=== PATIENT | male | born 1995 | race Two or more races ===

== ENCOUNTER 2021-10-09 05:18 | Emergency (ER) | payer OTHER ==
[~2021-10-09] VITALS: Ht 180.3 cm; Wt 83.1 kg
[2021-10-09] MEDS ORDERED: KETOROLAC 60MG/2ML VIAL IM ONE (10:15)
[2021-10-09] MEDS ORDERED: TRAMADOL 50MG TABLET PO ONE (10:15)
[2021-10-09] MEDS ORDERED: PENICILLIN V POTASSIUM 250MG TABLET PO SCH (10:15)
[2021-10-09] MEDS ORDERED: IBUP-2030 MT (10:35)
[2021-10-09] MEDS ORDERED: PENI500T MT (10:35)
[2021-10-09 10:53] VITALS: BP 127/82
== END 2021-10-09 11:19 | disposition home or self-care (01) ==
LOC: ER 05:18
DX: J02.9 Acute pharyngitis, unspecified (principal); Z98.890 Other specified postprocedural states
CPT/HCPCS: 96372; 99283; J1885